=== PATIENT | male | born 2000 | race Hispanic/Latino ===

== ENCOUNTER 2019-08-10 19:36 | Emergency (ER) | payer SELFPAY ==
[2019-08-10] MEDS ORDERED: MEPERIDINE HCL 25 MG/ML SYR ONE (19:49)
[2019-08-10] MEDS ORDERED: KETOROLAC 30 MG/ML INJ ONE (19:49)
[2019-08-10] MEDS ORDERED: dexAMETHasone 4 MG/ML VIAL ONE (19:49)
--- NOTE | 2019-08-10 20:15 | RAD REPORT ---
EXAM DESCRIPTION: RAD - Lumbar Spine 3 Views - 08/10/2019 7:57 pm CLINICAL HISTORY: back pain COMPARISON: No comparisons FINDINGS: A three-view lumbar spine examination was performed. Lumbar bodies are normal in height and alignment. No fracture or acute bony process seen. No disc spa ce narrowing. No other significant findings. No pars defects identified. IMPRESSION: Negative Lumbar Spine examination. Concerns for disc herniation, central canal abnormality or occult bone process can be addressed with follow-up outpatient MR lumbar spine imaging.
--- NOTE | 2019-08-11 00:19 | EDPHYS ---
Physician Documentation [facility] Name: Jules Sierra Age: 18 yrs Sex: Male : 2000 Arrival Date: 08/10/2019 Time: 19:36 Bed 7 Private MD: ED Physician Leonard Robertson HPI: 08/10 19:52 This 18 yrs old Male presents to ER via EMS with complaints of Back Pain. rn 19:52 The patient presents with pain that is acute. The symptoms are located in the low back, rn left low back. Onset: The symptoms/episode began/occurred just prior to arrival. The pain does not radiate. Modifying factors: The patient symptoms are alleviated by remaining still, specific position, lying down, the patient symptoms are aggravated by any movement. Severity of symptoms: At their worst the symptoms were moderate, in the emergency department the symptoms have improved. The patient has not experienced similar symptoms in the past. 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 No previous back injuries. No IV drug use. No other medical problems. Feels better in prone position.. Historical: - Allergies: 19:37 No Known Allergies; sg - Home Meds: 19:37 None [Active]; sg - PMHx: 19:37 None; sg - PSHx: 19:37 None; sg - Immunization history:: Adult Immunizations up to date. - Coronavirus screen:: The patient has NOT traveled to [place] in the past 14 days. The patient has NOT had contact with known/suspected case of Coronavirus?. - Social history:: Smoking status: Patient denies any tobacco usage or history of. - Family history:: not pertinent. - Ebola Screening: : Patient negative for fever greater than or equal to 101.5 degrees Fahrenheit, and additional compatible Ebola Virus Disease symptoms Patient denies exposure to infectious person Patient denies travel to an Ebola-affected area in the 21 days before illness onset No symptoms or risks identified at this time. - Hospitalizations: : No recent hospitalization is reported. ROS: 19:52 Constitutional: Negative for fever, chills, and weight loss, Eyes: Negative for injury, rn pain, redness, and discharge, Neck: Negative for injury, pain, and swelling, Cardiovascular: Negative for chest pain, palpitations, and edema, Respiratory: Negative for shortness of breath, cough, wheezing, and pleuritic chest pain, Abdomen/GI: Negative for abdominal pain, nausea, vomiting, diarrhea, and constipation, Back: + left lower back pain : Negative for injury, bleeding, discharge, and swelling, MS/Extremity: Negative for injury and deformity, Skin: Negative for injury, rash, and discoloration, Neuro: Negative for headache, weakness, numbness, tingling, and seizure. Exam: 19:52 Constitutional: This is a well developed, well nourished patient who is awake, alert, rn laying in prone position Neck: No midline cervical tenderness Cardiovascular: Regular rate and rhythm. No pulse deficits. Respiratory: No increased work of breathing, no retractions or nasal flaring. Back: No spinal tenderness. + left perilumbar tenderness without skin changes or hematoma Skin: Warm, dry MS/ Extremity: Pulses equal, no cyanosis. Neurovascular intact. Sensation and strength intact but limited due to pain. Neuro: Awake and alert, GCS 15, oriented to person, place, time, and situation. Motor strength 5/5 in all extremities. Sensory grossly intact. Vital Signs: 19:39 BP 128 / 70; Pulse 82; Resp 16; Temp 97.9; Pulse Ox 95% on R/A; sg 21:20 BP 122 / 70; Pulse 80; Resp 18; Pulse Ox 98% on R/A; Pain 2/10; sg MDM: 19:39 Patient medically screened. rn 20:59 Differential diagnosis: sprain, radiculopathy, muscle spasm, strain, disc bulge. Data rn reviewed: vital signs, nurses notes, radiologic studies, plain films, and as a result, I will discharge patient. Counseling: I had a detailed discussion with the patient and/or guardian regarding: the historical points, exam findings, and any diagnostic results supporting the discharge/admit diagnosis, radiology results, the need for outpatient follow up, to return to the emergency department if symptoms worsen or persist or if there are any questions or concerns that arise at home. Response to treatment: the patient's symptoms have mildly improved after treatment, and as a result, I will discharge patient. Special discussion: I discussed with the patient/guardian in detail that at this point there is no indication for admission to the hospital. It is understood, however, that if the symptoms persist or worsen the patient needs to return immediately for re-evaluation. ED course: No acute findings on xray lumbar spine, improved symptoms, no signs of spinal cord compression, will dc home with pain meds, steroids, muscle relaxer. . 21:02 Special discussion: Further emergent ED testing is not indicated at this point in time. rn I discussed with the patient/guardian in detail the need to arrange with the PCP or specialist further outpatient testing, MRI. 08/10 19:39 Order name: IV Start; Complete Time: 19:53 rn Administered Medications: 20:15 Drug: Decadron - Dexamethasone 10 mg Route: IVP; Site: right antecubital; jb4 20:16 Drug: TORadol 30 mg Route: IVP; Site: right antecubital; jb4 20:17 Drug: Demerol 25 mg {Note: Rass score 0.} Route: IVP; Site: right antecubital; jb4 Disposition: 08/10/19 21:01 Discharged to Home. Impression: Muscle spasm of back, Strain of muscle, fascia and tendon of lower back. - Condition is Stable. - Discharge Instructions: Back Pain, Adult, Muscle Cramps and Spasms, Muscle Strain. - Prescriptions for Cyclobenzaprine 10 mg Oral Tablet - take 1 tablet by ORAL route every 8 hours As needed; 20 tablet. Tramadol 50 mg Oral Tablet - take 1 tablet by ORAL route every 8 hours as needed; 20 tablet. Medrol (Nik) 4 mg Oral Tablets, Dose Pack - take 1 tablet by ORAL route as directed - follow package instructions; 1 packet. - Medication Reconciliation Form, Thank You Letter, Antibiotic Education, Prescription Opioid Use form. - Follow up: Private Physician; When: As needed; Reason: Recheck today's complaints, Re-evaluation by your physician. - Problem is new. - Symptoms have improved. Signatures: Andrew Villatoro RN RN sg Nieto, Roman, MD MD rn Bryson, James, RN RN jb4 Corrections: (The following items were deleted from the chart) 21:30 21:01 08/10/2019 21:01 Discharged to Home. Impression: Muscle spasm of back; Strain of sg muscle, fascia and tendon of lower back. Condition is Stable. Forms are Medication Reconciliation Form, Thank You Letter, Antibiotic Education, Prescription Opioid Use. Follow up: Private Physician; When: As needed; Reason: Recheck today's complaints, Re-evaluation by your physician. Problem is new. Symptoms have improved. rn
--- NOTE | 2019-08-11 00:22 | ER ---
Nurse's Notes [facility] Name: Jules Sierra Age: 18 yrs Sex: Male : 2000 Arrival Date: 08/10/2019 Time: 19:36 Bed 7 Private MD: Diagnosis: Muscle spasm of back;Strain of muscle, fascia and tendon of lower back Presentation: 08/10 19:37 Presenting complaint: EMS states: pt was reaching over the back of a couch to leaf size picker a sg small child when he had a pain in the lower back that caused him to fall to the ground onto his buttocks, pt reports having to lay on his stomach for a position of comfort, denies LOC, no feeling of popping or sensations described by the pt per EMS. Transition of care: patient was not received from another setting of care. Onset of symptoms was August 10, 2019. Risk Assessment: Do you want to hurt yourself or someone else? Patient reports no desire to harm self or others. Initial Sepsis Screen: Does the patient meet any 2 criteria? No. Patient's initial sepsis screen is negative. Does the patient have a suspected source of infection? No. Patient's initial sepsis screen is negative. Care prior to arrival: IV initiated. 20 GA, in the right antecubital area. 19:37 Method Of Arrival: EMS: [facility] 19:37 Acuity: BASIM 4 Triage Assessment: 19:40 General: Appears uncomfortable, slender, well groomed, well developed, well nourished, sg Behavior is calm, cooperative, appropriate for age. Pain: Complains of pain in lumbar area Quality of pain is described as aching, sharp, stabbing. Neuro: Level of Consciousness is awake, alert, obeys commands, Oriented to person, place, time, situation, Speech is normal. Cardiovascular: Patient's skin is warm and dry. Respiratory: Airway is patent Respiratory effort is even, unlabored, Respiratory pattern is regular, symmetrical. Derm: Skin is pink, warm \T\ dry. Musculoskeletal: Circulation, motion, and sensation intact. Historical: - Allergies: 19:37 No Known Allergies; sg - Home Meds: 19:37 None [Active]; sg - PMHx: 19:37 None; sg - PSHx: 19:37 None; sg - Immunization history:: Adult Immunizations up to date. - Coronavirus screen:: The patient has NOT traveled to [place] in the past 14 days. The patient has NOT had contact with known/suspected case of Coronavirus?. - Social history:: Smoking status: Patient denies any tobacco usage or history of. - Family history:: not pertinent. - Ebola Screening: : Patient negative for fever greater than or equal to 101.5 degrees Fahrenheit, and additional compatible Ebola Virus Disease symptoms Patient denies exposure to infectious person Patient denies travel to an Ebola-affected area in the 21 days before illness onset No symptoms or risks identified at this time. - Hospitalizations: : No recent hospitalization is reported. Assessment: 19:40 General: Appears in no apparent distress. well groomed, well developed, well nourished, sg Behavior is calm, cooperative, appropriate for age. Pain: Complains of pain in lumbar area Quality of pain is described as aching. Neuro: Level of Consciousness is awake, alert, obeys commands, Oriented to person, place, time, Speech is normal, Facial symmetry appears normal. Cardiovascular: Heart tones S1 S2 present Patient's skin is warm and dry. Chest pain is denied. Respiratory: Airway is patent Respiratory effort is even, unlabored, Respiratory pattern is regular, symmetrical. GI: Abdomen is flat, non-distended. : No signs and/or symptoms were reported regarding the genitourinary system. EENT: No signs and/or symptoms were reported regarding the EENT system. Derm: Skin is pink, warm \T\ dry. Musculoskeletal: Circulation, motion, and sensation intact. Range of motion: intact in all extremities, Reports pain in lumbar area. Vital Signs: 19:39 BP 128 / 70; Pulse 82; Resp 16; Temp 97.9; Pulse Ox 95% on R/A; sg 21:20 BP 122 / 70; Pulse 80; Resp 18; Pulse Ox 98% on R/A; Pain 2/10; sg ED Course: 19:36 Patient arrived in ED. sg 19:37 Arm band placed on. sg 19:38 Leonard Robertson MD is Attending Physician. rn 19:39 Triage completed. sg 19:40 Patient has correct armband on for positive identification. Placed in gown. Bed in low sg position. Side rails up X2. Pulse ox on. NIBP on. Warm blanket given. Head of bed elevated. 19:40 Maintain EMS IV. Dressing intact. Site clean \T\ dry. Gauge \T\ site: 20 G RAC. sg 19:42 Andrew Villatoro, RN is Primary Nurse. sg 21:25 No provider procedures requiring assistance completed. IV discontinued, intact, sg bleeding controlled, No redness/swelling at site. Pressure dressing applied. Administered Medications: 20:15 Drug: Decadron - Dexamethasone 10 mg Route: IVP; Site: right antecubital; jb4 20:16 Drug: TORadol 30 mg Route: IVP; Site: right antecubital; jb4 20:17 Drug: Demerol 25 mg {Note: Rass score 0.} Route: IVP; Site: right antecubital; jb4 Outcome: 21:01 Discharge ordered by . rn 21:25 Discharged to home ambulatory, with family. sg 21:25 Condition: improved 21:25 Discharge instructions given to patient, family, Instructed on discharge instructions, follow up and referral plans. no drinking with medication, no driving heavy equipment, medication usage, safety practices, Demonstrated understanding of instructions, follow-up care, medications, Prescriptions given X 3. 21:30 Patient left the ED. sg Signatures: Andrew Villatoro, RN FATUMA Leonard Robertson MD MD rn Bryson, James, RN RN jb4
[2019-08-11 02:47] VITALS: BP 128/70; TEMP 97.9; O2SAT 95
== END 2019-08-10 21:30 | disposition home or self-care (01) ==
LOC: ER 19:36
DX: S39.012A Strain of muscle, fascia and tendon of lower back, initial encounter (principal); M62.830 Muscle spasm of back
CPT/HCPCS: 72100; 96374; 96375; 99284; J2175

== ENCOUNTER 2019-10-14 11:17 | Emergency (ER) | payer SELFPAY ==
--- OUTSIDE RECORDS SUMMARY | 2019-10-14 11:20 | XMS REPORT | Continuity of Care Document ---
:2000 Author Organization [facility] Address [address] [place] [address] Phone Unavailable Care Team Providers Name Role Phone PHYSICIAN Primary Care Physician Unavailable Insurance Providers Guarantor Martin Sierra Address [address] [place] [address] Email DENIED Payer Self Pay Insurance Subscriber's Name Martin Sierra Relationship Self / Same As Patient Group Number NA Group Name NA Advance Directives Directive Response Recorded Date/Time Patient/Family Given Education Material R/T Y - 07/15/18.. .[place] 07/15/18 9:02pm Directives? Chief Complaint and Reason for Visit Chief Complaint Trauma Reason for Visit [id number] Head injury Fall Problems Active ProblemsNo active problem information available. Past Problems Medical Problem Onset Date Status Fall Unknown Acute Head injury Unknown Acute Nasal bone fractures Unknown Acute Medications Current Home Medications Medication Dose Units Route Directions Days Qty Instructio ns Start Date Ondansetron Hcl 4 Mg ORAL Every 6 Hours 30 Days 15 Tablet 07/15/18 (Zofran *) 4 Mg As Needed as Tab needed for Nausea/Vomitin g Social History Smoking Status Start Date Stop Date Never smoker Hospital Discharge Instructions No hospital discharge instruction information available. Plan of Care Discharge Date 07/15/18 9:00pm Instructions/Education Provided Head Injury, Adult, Ea sy-to-Read Nasal Fracture Forms Provided Portal Welcome Letter Prescriptions See Medication Section Referrals NO PHYSICIAN Additional Instructions/Education Tylenol and ibuprofe n as needed for pain Zofran 4 mg every 6 hours as needed for nausea number [address] Encarnacion (ENT) t his week Head injury precautions for next 24 hours return for new or worsening of symptoms Functional Status No functional status information available. Allergies, Adverse Reactions, Alerts No allergy information available. Immunizations No immunization information available. Vital Signs Acute Vital Signs Vital Response Date/Time Blood Pressure 128/85 mm Hg 07/15/2018 9:01pm Pulse Pulse Rate (adult) 68 beats per minute (60 - 100) 019 9:01pm Respiratory Rate 18 breaths per minute (10 - 24) 07/15/19 19 9:01pm Temperature Source Oral 07/15/2018 9:01pm Height 5 ft 9 in 07/15/2018 7:31pm Weight 180 lb 07/15/2018 7:31pm Body Mass Index 26.6 kg/m^2 07/15/2018 7:31pm Results No relevant diagnostic test, laboratory data and/or discharge summary information available. Procedures Procedure Status Date Provider(s) Computed tomography of head without Completed 07/15/18 REN LI contrast Computed tomography of facial bones and Completed 07/15/18 REN LI paranasal sinuses without contrast Encounters Encounter Location Arrival/Admit Date Discharge/Depart Date Attending Provider Departed [place] 07/15/18 7:22pm 07/15/18 9:00pm [facility] Recent Diagnosis
[2019-10-14 12:33] LABS: Absolute Lymphocytes (CBC) 2.5 K/uL (0.7-4.9); Basophils % 0.8 % (0-1.3); Hematocrit 42.7 % (39.6-49.0); Lymphocytes % 26.4 % (15.3-44.8); MPV 8.4 fL (7.6-11.3); RBC Red Blood Cell Count 4.86 M/uL (4.33-5.43)
[2019-10-14 12:51] LABS: ALT/SGPT 21 U/L (12-78); AST/SGOT 14 U/L (15-37); Albumin 4.5 g/dL (3.4-5.0); Alkaline Phosphatase 87 U/L (45-117); BUN Blood Urea Nitrogen 7 mg/dL (7-18); Bicarbonate 28 mmol/L (21-32); Bilirubin Direct 0.2 mg/dL (0-0.2); Bilirubin Total 0.6 mg/dL (0.2-1.0); Glucose Level 94 mg/dL (74-106); Potassium 4.1 mmol/L (3.5-5.1); Protein, Total 8.3 g/dL (6.4-8.2); Sodium Level 141 mmol/L (136-145)
[2019-10-14 13:00] LABS: Barbiturates NEGATIVE (NEGATIVE); Benzodiazepines POSITIVE (NEGATIVE); Cocaine POSITIVE (NEGATIVE); METHAMPHETAM NEGATIVE (NEGATIVE); Methadone NEGATIVE (NEGATIVE); Opiates NEGATIVE (NEGATIVE); Phencyclidine NEGATIVE (NEGATIVE); THC Cannibis POSITIVE (NEGATIVE)
[2019-10-14 13:24] LABS: Urine Blood TRACE (NEG); Urine Glucose NEGATIVE (NEG); Urine Protein NEGATIVE (NEG); Urine Specific Gravity >1.030 (1.005-1.030); Urine pH 5.5 (5.0-7.0)
--- NOTE | 2019-10-14 14:30 | ER ---
Nurse's Notes [facility] Name: Jules Sierra Age: 18 yrs Sex: Male : 2000 Arrival Date: 10/14/2019 Time: 11:18 Bed 17 Private MD: Diagnosis: Major depressive disorder, recurrent;Suicidal ideations;Suicide attempt;Cocaine abuse;Abuse of non-psychoactive substances-pot, benzos, cocaine;Abrasion of left forearm Presentation: 10/13 11:15 Chief complaint: Patient states: that he caught his girlfriend talking to another man. ah He was actively cutting his left forearm with a kitchen knife when the labor operator arrived. He states that he feels lost, depressed, and hopeless x2 months and today exacerbated those feelings. He does have a prior attempt when in high school. Coronavirus screen: Proceed with normal triage. Patient denies a cough. Patient denies shortness of breath or difficulty breathing. Patient denies measured and/or subjective temperature greater than 100.4F prior to today's visit. Patient denies travel on a cruise ship or to a country the [facility] currently lists as an affected area. Patient denies contact with known and/or suspected case of COVID-19. Ebola Screen: No symptoms or risks identified at this time. Initial Sepsis Screen: Does the patient meet any 2 criteria? No. Patient's initial sepsis screen is negative. Does the patient have a suspected source of infection? No. Patient's initial sepsis screen is negative. Risk Assessment: Do you want to hurt yourself or someone else? Patient reports desire/thoughts of hurting themselves or someone else. Provider notified. Onset of symptoms was October 14, 2019. 11:15 Method Of Arrival: Law Enforcement: [place] 11:15 Acuity: BASIM 2 ah 11:37 Acuity: BASIM 2 hb Historical: - Allergies: 11:40 No Known Allergies; - Home Meds: 11:40 None [Active]; - PMHx: 11:40 None; - PSHx: 11:40 None; - Immunization history:: Adult Immunizations up to date. - Social history:: Smoking status: Patient reports the use of cigarette tobacco products, denies chronic smoking, but will smoke occasionally, Patient uses alcohol, occasionally. Patient/guardian denies using street drugs. - Family history:: not pertinent. Screenin:52 Abuse screen: Denies threats or abuse. Nutritional screening: No deficits noted. Tuberculosis screening: No symptoms or risk factors identified. Fall Risk None identified. Assessment: 11:15 General: Appears comfortable, Behavior is cooperative, appropriate for age, quiet, sad. Pain: Denies pain. Neuro: Level of Consciousness is awake, alert, Oriented to person, place, time, situation. Cardiovascular: Heart tones S1 S2 present Capillary refill < 3 seconds Patient's skin is warm and dry. Respiratory: Airway is patent Respiratory effort is even, unlabored, Respiratory pattern is regular, symmetrical, Breath sounds are clear bilaterally. GI: Bowel sounds present X 4 quads. : No signs and/or symptoms were reported regarding the genitourinary system. EENT: No signs and/or symptoms were reported regarding the EENT system. Derm: No signs and/or symptoms reported regarding the dermatologic system. Musculoskeletal: No signs and/or symptoms reported regarding the musculoskeletal system. 12:15 Reassessment: Pt lying in bed resting at this time. No needs voiced at this time. 12:30 Reassessment: Pt sitting up in bed eating lunch at this time. 13:15 Reassessment: No needs voiced at this time. Pt resting with eyes closed and resp even ah and unlabored. 15:23 Reassessment: Pt states that he does not want to harm himself at this time. He states ah that he just wants to go home and sleep. Pt given a list of community resources to assist him. Instructed Pt to establish and follow up with psychiatry MD VIRK. Pt voiced understanding. Pt states that he wants to get help and he wants to feel better. Vital Signs: 11:15 BP 133 / 90; Pulse 89; Resp 16; Temp 98.6(A); Pulse Ox 100% ; Weight 79.38 kg; Height 5 ft. 9 in. (175.26 cm); 11:15 Body Mass Index 25.84 (79.38 kg, 175.26 cm) ED Course: 11:18 Patient arrived in ED. am2 11:18 Warren Pardo MD is Attending Physician. [facility] 11:18 Sitter at bedside. hb 11:30 Little Vale, RN is Primary Nurse. 11:38 Triage completed. 11:50 Patient has correct armband on for positive identification. Placed in gown. Call light mh5 in reach. Side rails up X 1. Warm blanket given. Pillow given. 12:30 Inserted saline lock: 20 gauge in right antecubital area, using aseptic technique. jp3 Blood collected. 12:30 Initial lab(s) drawn, by ma, sent to lab. Urine collected: clean catch specimen, clear, jp3 dayday colored, EKG done, Legal drug screen obtained per protocol. 14:30 Randall Figueroa MD is Referral Physician. [facility] 15:23 No provider procedures requiring assistance completed. IV discontinued, intact, bleeding controlled, No redness/swelling at site. Pressure dressing applied. Administered Medications: No medications were administered Outcome: 14:30 Discharge ordered by . [facility] 15:27 Discharged to home ambulatory. 15:27 Condition: stable 15:27 Discharge instructions given to patient, Instructed on discharge instructions, follow up and referral plans. Demonstrated understanding of instructions, follow-up care. 15:35 Patient left the ED. Signatures: Warren Pardo MD MD cha Baxter, Heather, RN RN Antonette Lin mh5 Ella Weathers am2 Ned Alonzo jp3 Little Vale, RN RN
--- NOTE | 2019-10-14 14:31 | EDPHYS ---
Physician Documentation [facility] Name: Jules Sierra Age: 18 yrs Sex: Male : 2000 Arrival Date: 10/14/2019 Time: 11:18 Bed 17 Private MD: ED Physician Warren Pardo HPI: 10/13 12:03 This 18 yrs old Male presents to ER via [employer] with complaints of ancelmo suicidal thoughtsand superficial arm cuts. 12:03 The patient presents to the emergency department with depression. Onset: The ancelmo symptoms/episode began/occurred 1 day(s) ago. Past psychiatric history: Prior diagnosis: depression. drugs, lost job, girlfriend cheating. Associated signs and symptoms: Pertinent positives; depression, substance abuse. Severity of symptoms: At their worst the symptoms were mild in the emergency department the symptoms are unchanged. Severity of symptoms: At their worst the symptoms were. The patient has not experienced similar symptoms in the past. Historical: - Allergies: 11:40 No Known Allergies; ah - Home Meds: 11:40 None [Active]; ah - PMHx: 11:40 None; ah - PSHx: 11:40 None; - Immunization history:: Adult Immunizations up to date. - Social history:: Smoking status: Patient reports the use of cigarette tobacco products, denies chronic smoking, but will smoke occasionally, Patient uses alcohol, occasionally. Patient/guardian denies using street drugs. - Family history:: not pertinent. ROS: 12:03 Constitutional: Negative for fever, chills, and weight loss, Eyes: Negative for injury, ancelmo pain, redness, and discharge, ENT: Negative for injury, pain, and discharge, Neck: Negative for injury, pain, and swelling, Cardiovascular: Negative for chest pain, palpitations, and edema, Respiratory: Negative for shortness of breath, cough, wheezing, and pleuritic chest pain, Abdomen/GI: Negative for abdominal pain, nausea, vomiting, diarrhea, and constipation, Back: Negative for injury and pain, : Negative for injury, bleeding, discharge, and swelling, MS/Extremity: Negative for injury and deformity, Neuro: Negative for headache, weakness, numbness, tingling, and seizure, Allergy/Immunology: Negative for hives, rash, and allergies, Endocrine: Negative for neck swelling, polydipsia, polyuria, polyphagia, and marked weight changes. 12:03 Skin: Positive for abrasion(s). 12:03 Psych: Positive for depression, suicide gesture. Exam: 12:03 Constitutional: This is a well developed, well nourished patient who is awake, alert, ancelmo and in no acute distress. Head/Face: Normocephalic, atraumatic. Eyes: Pupils equal round and reactive to light, extra-ocular motions intact. Lids and lashes normal. Conjunctiva and sclera are non-icteric and not injected. Cornea within normal limits. Periorbital areas with no swelling, redness, or edema. ENT: Nares patent. No nasal discharge, no septal abnormalities noted. Tympanic membranes are normal and external auditory canals are clear. Oropharynx with no redness, swelling, or masses, exudates, or evidence of obstruction, uvula midline. Mucous membranes moist. Neck: Trachea midline, no thyromegaly or masses palpated, and no cervical lymphadenopathy. Supple, full range of motion without nuchal rigidity, or vertebral point tenderness. No Meningismus. Chest/axilla: Normal chest wall appearance and motion. Nontender with no deformity. No lesions are appreciated. Cardiovascular: Regular rate and rhythm with a normal S1 and S2. No gallops, murmurs, or rubs. Normal PMI, no JVD. No pulse deficits. Respiratory: Lungs have equal breath sounds bilaterally, clear to auscultation and percussion. No rales, rhonchi or wheezes noted. No increased work of breathing, no retractions or nasal flaring. Abdomen/GI: Soft, non-tender, with normal bowel sounds. No distension or tympany. No guarding or rebound. No evidence of tenderness throughout. Back: No spinal tenderness. No costovertebral tenderness. Full range of motion. Male : Normal genitalia with no discharge or lesions. MS/ Extremity: Pulses equal, no cyanosis. Neurovascular intact. Full, normal range of motion. Neuro: Awake and alert, GCS 15, oriented to person, place, time, and situation. Cranial nerves II-XII grossly intact. Motor strength 5/5 in all extremities. Sensory grossly intact. Cerebellar exam normal. Normal gait. 12:03 Skin: injury, abrasion(s), very small abrasion noted. 12:03 Psych: Behavior/mood is pleasant, cooperative, Affect is calm, Oriented to person, place, time, Patient has no thoughts/intents to harm self or others. Judgement / Insight is normal. Delusions/hallucinations are not present. 12:50 ECG was reviewed by the Attending Physician. ancelmo Vital Signs: 11:15 BP 133 / 90; Pulse 89; Resp 16; Temp 98.6(A); Pulse Ox 100% ; Weight 79.38 kg; Height 5 ah ft. 9 in. (175.26 cm); 11:15 Body Mass Index 25.84 (79.38 kg, 175.26 cm) MDM: 11:18 Patient medically screened. ancelmo 12:09 Differential diagnosis: depression. Data reviewed: vital signs, nurses notes, lab test ancelmo result(s). Data interpreted: equipment monitor phototypesetting: rate is 89 beats/min, Pulse oximetry: is not applicable for this patient encounter. Test interpretation: by ED physician or midlevel provider: ECG. Counseling: I had a detailed discussion with the patient and/or guardian regarding: the historical points, exam findings, and any diagnostic results supporting the discharge/admit diagnosis, lab results. ED course: suicidal thoughts, used cocaine last night, wants help, family in [place]. 12:55 ED course: pt stable awaiting psych team to visit via tele med. ancelmo 14:31 ED course: pt will follow up , not a danger to himself, will refrain from drug use, ancelmo return if worse. 10/13 12:03 Order name: Salicylate; Complete Time: 13:30 ancelmo 10/13 12:03 Order name: Acetaminophen; Complete Time: 12:54 ancelmo 10/13 12:03 Order name: Basic Metabolic Panel; Complete Time: 12:54 ancelmo 10/13 12:03 Order name: CBC with Diff; Complete Time: 12:54 ancelmo 10/13 12:03 Order name: ETOH Level; Complete Time: 12:54 ancelmo 10/13 12:03 Order name: Hepatic Function; Complete Time: 12:54 ancelmo 10/13 11:51 Order name: Diet Finger Food; Complete Time: 11:51 [facility] 10/13 12:03 Order name: Urine Drug Screen; Complete Time: 13:30 ancelmo 10/13 12:03 Order name: EKG; Complete Time: 12:03 ancelmo 10/13 12:03 Order name: EKG - Nurse/Tech; Complete Time: 12:52 [facility] 10/13 12:03 Order name: IV Saline Lock; Complete Time: 12:52 [facility] 10/13 12:03 Order name: Labs collected and sent; Complete Time: 12:53 [facility] 10/13 12:03 Order name: Urine Dipstick-Ancillary (obtain specimen); Complete Time: 12:41 [facility] 10/13 12:42 Order name: Urine Dipstick--Ancillary (enter results); Complete Time: 13:30 em1 EC:50 Rate is 75 beats/min. Rhythm is regular. QRS [place] is Normal. [place] interval is normal. QRS ancelmo interval is normal. QT interval is normal. No Q waves. T waves are Normal. No ST changes noted. Clinical impression: NSR w/ Non-specific ST/T Changes. Interpreted by me. Reviewed by me. Administered Medications: No medications were administered Disposition: 10/14/19 14:30 Discharged to Home. Impression: Major depressive disorder, recurrent, Suicidal ideations, Suicide attempt, Cocaine abuse, Abuse of non-psychoactive substances - pot, benzos, cocaine, Abrasion of left forearm. - Condition is Stable. - Discharge Instructions: Substance Use Disorder, Suicidal Feelings: How to Help Yourself, Helping Someone Who is Suicidal, Stress and Stress Management, Major Depressive Disorder, [id number], Major Depressive Disorder. - Medication Reconciliation Form, Thank You Letter, Antibiotic Education, Prescription Opioid Use form. - Follow up: Private Physician; When: 2 - 3 days; Reason: Recheck today's complaints, Continuance of care, Re-evaluation by your physician. Follow up: Randall Figueroa MD; When: 2 - 3 days; Reason: Recheck today's complaints, Continuance of care, Re-evaluation by your physician. - Problem is new. - Symptoms have improved. Signatures: Dispatcher [employer] EDWarren Taylor MD MD cha Harris, Amy RN RN Corrections: (The following items were deleted from the chart) 14:30 14:30 10/14/2019 14:30 Discharged to Home. Impression: Major depressive disorder, ancelmo recurrent; Suicidal ideations; Suicide attempt; Cocaine abuse; Abuse of non-psychoactive substances - pot, benzos, cocaine; Abrasion of left forearm. Condition is Stable. Discharge Instructions: Suicidal Feelings: How to Help Yourself, Helping Someone Who is Suicidal, Stress and Stress Management, Major Depressive Disorder, [id number], Major Depressive Disorder, Substance Use Disorder. Forms are Medication Reconciliation Form, Thank You Letter, Antibiotic Education, Prescription Opioid Use. Follow up: Private Physician; When: 2 - 3 days; Reason: Recheck today's complaints, Continuance of care, Re-evaluation by your physician. Problem is new. Symptoms have improved. [facility] 15:35 14:30 10/14/2019 14:30 Discharged to Home. Impression: Major depressive disorder, ah recurrent; Suicidal ideations; Suicide attempt; Cocaine abuse; Abuse of non-psychoactive substances - pot, benzos, cocaine; Abrasion of left forearm. Condition is Stable. Discharge Instructions: Suicidal Feelings: How to Help Yourself, Helping Someone Who is Suicidal, Stress and Stress Management, Major Depressive Disorder, [id number], Major Depressive Disorder, Substance Use Disorder. Forms are Medication Reconciliation Form, Thank You Letter, Antibiotic Education, Prescription Opioid Use. Follow up: Private Physician; When: 2 - 3 days; Reason: Recheck today's complaints, Continuance of care, Re-evaluation by your physician. Follow up: Randall Figueroa; When: 2 - 3 days; Reason: Recheck today's complaints, Continuance of care, Re-evaluation by your physician. Problem is new. Symptoms have improved. ancelmo
--- NOTE | 2019-10-14 14:41 | EKG ---
Test Date: 2019-10-14 Test Time: 12:27:17 Roll Panner: TORRES MEASUREMENT RESULTS: Intervals: Rate: 75 IL: 146 QRSD: 104 QT: 372 QTc: 415 [place]: P: 65 IL: 146 QRS: 59 T: 60 INTERPRETIVE STATEMENTS: Normal sinus rhythm Incomplete right bundle branch block Borderline ECG No previous ECG available for comparison Electronically Signed On 10-14-19 14:40:56 CDT by Dimitris Saha
== END 2019-10-14 15:35 | disposition home or self-care (01) ==
LOC: ER 11:17
DX: T14.91XA Suicide attempt, initial encounter (principal); S50.812A Abrasion of left forearm, initial encounter; F14.10 Cocaine abuse, uncomplicated; F13.10 Sedative, hypnotic or anxiolytic abuse, uncomplicated; F12.10 Cannabis abuse, uncomplicated; X78.9XXA Intentional self-harm by unspecified sharp object, initial encounter; Y93.89 Activity, other specified; Y92.9 Unspecified place or not applicable; F17.210 Nicotine dependence, cigarettes, uncomplicated
CPT/HCPCS: 36415; 80048; 80076; 80307; 80320; 80329; 81003; 85025; 93005; 99284

== ENCOUNTER 2020-02-23 16:33 | Emergency (ER) | payer SELFPAY ==
--- NOTE | 2020-02-23 17:04 | ER ---
Nurse's Notes [facility] Name: Jules Sierra Age: 19 yrs Sex: Male : 2000 Arrival Date: 02/23/2020 Time: 16:34 Bed 17 Private MD: Diagnosis: Anxiety disorder, unspecified Presentation: 02/22 16:34 Chief complaint: Patient states: pt presents with EMS with reports of erratic behavior jr10 at home, reports that pt got angry and was breaking things in the apt; hx of depression, denies HI/SI. Coronavirus screen: Client denies travel out of the [place] in the last 14 days. At this time, the client does not indicate any symptoms associated with coronavirus-19. Ebola Screen: No symptoms or risks identified at this time. Initial Sepsis Screen: Does the patient meet any 2 criteria? No. Patient's initial sepsis screen is negative. Does the patient have a suspected source of infection? No. Patient's initial sepsis screen is negative. Risk Assessment: Do you want to hurt yourself or someone else? Patient reports no desire to harm self or others. Onset of symptoms was February 23, 2020. 16:34 Method Of Arrival: EMS jr10 16:34 Acuity: BASIM 3 jr10 Triage Assessment: 17:17 General: Appears in no apparent distress. Behavior is calm, cooperative, appropriate jr10 for age. Pain: Denies pain. Neuro: No deficits noted. Respiratory: No deficits noted. Derm: Skin superficial abrasions noted to left forearm. Musculoskeletal: No deficits noted. No signs and/or symptoms reported regarding the musculoskeletal system. Historical: - Allergies: 16:38 No Known Allergies; jr10 - PMHx: 16:38 ADHD; Depression; jr10 - PSHx: 16:38 None; jr10 - Immunization history:: Adult Immunizations up to date. - Social history:: Smoking status: unknown. Screenin:37 Abuse screen: Denies threats or abuse. Denies injuries from another. Nutritional jr10 screening: No deficits noted. Tuberculosis screening: No symptoms or risk factors identified. Fall Risk None identified. Assessment: 17:18 Reassessment: SEE TRIAGE ASSESSMENT. jr10 Vital Signs: 16:34 BP 153 / 93; Pulse 105; Resp 18; Temp 98.6; Pulse Ox 99% on R/A; Weight 79.38 kg; jr10 Height 5 ft. 9 in. (175.26 cm); Pain 0/10; 17:22 BP 126 / 83; Pulse 102; Resp 17; Pulse Ox 100% on R/A; jr10 16:34 Body Mass Index 25.84 (79.38 kg, 175.26 cm) jr10 ED Course: 16:34 Patient arrived in ED. jr10 16:37 Triage completed. jr10 16:37 Arm band placed on. jr10 16:37 Patient has correct armband on for positive identification. Bed in low position. Call jr10 light in reach. Side rails up X2. Pulse ox on. NIBP on. 16:37 No provider procedures requiring assistance completed. [facility] 16:46 Domo Merritt PA is PHCP. [facility] 16:46 Leonard Robertson MD is Attending Physician. [facility] 17:23 Patient did not have IV access during this emergency room visit. jr10 Administered Medications: No medications were administered Outcome: 17:03 Discharge ordered by MD. [facility] 17:23 Discharged to home ambulatory. jr10 17:23 Condition: good 17:23 Discharge instructions given to patient, Instructed on discharge instructions, follow up and referral plans. Demonstrated understanding of instructions, follow-up care, medications, Prescriptions given X 1. 17:23 Patient left the ED. jr10 Signatures: Domo Merritt PA PA jmm Rivera, Jessica, RN RN jr10
--- NOTE | 2020-02-23 17:04 | EDPHYS ---
Physician Documentation [facility] Name: Jules Sierra Age: 19 yrs Sex: Male : 2000 Arrival Date: 02/23/2020 Time: 16:34 Bed 17 Private MD: ED Physician Leonard Robertson HPI: 02/22 16:56 This 19 yrs old Male presents to ER via EMS with complaints of Depression. jmm 16:56 The patient presents to the emergency department with anxiety, depression. Onset: The jmm symptoms/episode began/occurred chronic. Past psychiatric history: Prior diagnosis: depression, Psychiatric medications include: none. This is a 19 year old male with a history of anxiety that presents to the ED with complaints of anger issues which he believes stems from anxiety and lack of sleep. Patient admits to racing thoughts mainly in the evenings. Patient states he has had ongoing depression since he was 8. Patient denies any current treatment but does want to begin treatment. Patient currently denies HI or SI. Superficial lacerations noted to the left forearm. Patient states this is due to anger and frustration and states he has no intent to kill himself or harm others. Patient states he has 3 children. . Historical: - Allergies: 16:38 No Known Allergies; jr10 - PMHx: 16:38 ADHD; Depression; jr10 - PSHx: 16:38 None; jr10 - Immunization history:: Adult Immunizations up to date. - Social history:: Smoking status: unknown. ROS: 16:56 Constitutional: Negative for fever, chills, and weight loss, Cardiovascular: Negative jmm for chest pain, palpitations, and edema, Respiratory: Negative for shortness of breath, cough, wheezing, and pleuritic chest pain. 16:56 Skin: Positive for laceration(s). 16:56 Psych: Positive for anxiety, depression. 16:56 All other systems are negative. Exam: 16:56 Constitutional: This is a well developed, well nourished patient who is awake, alert, jmm and in no acute distress. Head/Face: atraumatic. Eyes: EOMI, no conjunctival erythema appreciated ENT: Moist Mucus Membranes Neck: Trachea midline, Supple Chest/axilla: Normal chest wall appearance and motion. Cardiovascular: Regular rate and rhythm. No edema appreciated Respiratory: Normal respirations, no respiratory distress appreciated Abdomen/GI: Non distended, soft Back: Normal ROM 16:56 Skin: multiple superficial lacerations noted to the left forearm which appear new and old. no active bleeding. 16:56 Psych: Behavior/mood is pleasant, cooperative, Affect is calm, Oriented to person, place, time, Patient has no thoughts/intents to harm self or others. Judgement / Insight is normal. Delusions/hallucinations are not present. Vital Signs: 16:34 BP 153 / 93; Pulse 105; Resp 18; Temp 98.6; Pulse Ox 99% on R/A; Weight 79.38 kg; jr10 Height 5 ft. 9 in. (175.26 cm); Pain 0/10; 17:22 BP 126 / 83; Pulse 102; Resp 17; Pulse Ox 100% on R/A; jr10 16:34 Body Mass Index 25.84 (79.38 kg, 175.26 cm) jr10 MDM: 16:56 Patient medically screened. [facility] 17:02 Data reviewed: vital signs, nurses notes. Counseling: I had a detailed discussion with ambrose the patient and/or guardian regarding: the historical points, exam findings, and any diagnostic results supporting the discharge/admit diagnosis, the need for outpatient follow up, to return to the emergency department if symptoms worsen or persist or if there are any questions or concerns that arise at home. 17:20 ED course: Patient is alert and non toxic in appearance in the ED. Patient states he jmm feels calm. I do not suspect he is in acute danger of self harm. Patient does not have HI or hallucinations. Patient states he does want to begin treatment for depression and anxiety. I have given the patient information for outpatient psychiatric follow up. Patient understood and appears to be able to make rational diecisions. Patient was otherwise given strict return precautions. Patient understood and agrees with the plan of care. . Administered Medications: No medications were administered Disposition: 18:30 Co-signature as Attending Physician, Leonard Robertson MD. rn Disposition: 02/23/20 17:03 Discharged to Home. Impression: Anxiety disorder, unspecified. - Condition is Stable. - Discharge Instructions: Panic Attacks. - Prescriptions for Hydroxyzine HCl 25 mg Oral Tablet - take 1 tablet by ORAL route every 6 hours As needed; 30 tablet. - Medication Reconciliation Form, Thank You Letter, Antibiotic Education, Prescription Opioid Use form. - Follow up: Private Physician; When: 2 - 3 days; Reason: Recheck today's complaints, Continuance of care, Re-evaluation by your physician. Signatures: Domo Merritt PA PA jmm Nieto, Roman, MD MD rn Rivera, Jessica, RN RN jr10 Corrections: (The following items were deleted from the chart) 17:23 17:03 02/23/2020 17:03 Discharged to Home. Impression: Anxiety disorder, unspecified. jr10 Condition is Stable. Forms are Medication Reconciliation Form, Thank You Letter, Antibiotic Education, Prescription Opioid Use. Follow up: Private Physician; When: 2 - 3 days; Reason: Recheck today's complaints, Continuance of care, Re-evaluation by your physician. ambrose
[2020-02-23 17:52] VITALS: TEMP 98.6
[2020-02-23 17:53] VITALS: BP 126/83; O2SAT 100
== END 2020-02-23 17:23 | disposition home or self-care (01) ==
LOC: ER 16:33
DX: F41.9 Anxiety disorder, unspecified (principal); F32.9 Major depressive disorder, single episode, unspecified; S51.812A Laceration without foreign body of left forearm, initial encounter; X83.8XXA Intentional self-harm by other specified means, initial encounter
CPT/HCPCS: 99283

== ENCOUNTER 2020-04-20 22:47 | Emergency (ER) | payer SELFPAY ==
--- NOTE | 2020-04-20 23:03 | ER ---
Nurse's Notes [facility] Name: Jules Sierra Age: 19 yrs Sex: Male : 2000 Arrival Date: 04/20/2020 Time: 22:53 Bed External Waiting Private MD: Diagnosis: ED Course: 04/20 22:53 Patient arrived in ED. ag3 Administered Medications: No medications were administered Outcome: 23:02 Eloped from waiting room, Time discovered patient gone: April 20, 2020 at 23:02 sg 23:02 Condition: stable 23:03 Patient left the ED. sg Signatures: Andrew Villatoro RN RN Arlin Elaine ag3
== END 2020-04-20 23:03 | disposition left against medical advice (07) ==
LOC: ER 22:47
DX: Z02.9 Encounter for administrative examinations, unspecified (principal)

== ENCOUNTER 2020-05-21 09:51 | Emergency (ER) | payer SELFPAY ==
[2020-05-21] MEDS ORDERED: ACETAMINOPHEN 500 MG TAB ONE (10:25)
[2020-05-21] MEDS ORDERED: NA CHLORIDE 0.9% 1,000 ML ONE (10:25)
[2020-05-21 10:38] LABS: Basophils % 0.3 % (0-1.3); Lymphocytes % 11.4 % (15.3-44.8); MPV 9.2 fL (7.6-11.3); RBC Red Blood Cell Count 4.96 M/uL (4.33-5.43)
[2020-05-21 10:52] LABS: BUN Blood Urea Nitrogen 14 mg/dL (7-18); Bicarbonate 25 mmol/L (21-32); Glucose Level 89 mg/dL (74-106); Magnesium 1.9 mg/dL (1.8-2.4); Potassium 3.6 mmol/L (3.5-5.1); Sodium Level 141 mmol/L (136-145); Troponin (Emerg Dept Use Only) < 0.02 ng/mL (0.0-0.045)
--- NOTE | 2020-05-21 11:19 | ER ---
Nurse's Notes [facility] Name: Jules Sierra Age: 19 yrs Sex: Male : 2000 Arrival Date: 05/21/2020 Time: 09:53 Bed 14 Private MD: Diagnosis: Acute upper respiratory infection, unspecified;Diarrhea, unspecified Presentation: 05/21 09:54 Chief complaint: EMS states: Pt complains of chest pain, diarrhea. He says he was ec1 exposed to covid a week ago. He has panic disorder. He was freaking out in his house and as soon as we got him in the back of the truck his heart rate dropped and he called down. Coronavirus screen: Client denies travel out of the [place] in the last 14 days. Client presents with at least one sign or symptom that may indicate coronavirus-19. Standard/surgical mask placed on the client. Provider contacted for isolation considerations. Ebola Screen: Patient negative for fever greater than or equal to 101.5 degrees Fahrenheit, and additional compatible Ebola Virus Disease symptoms Patient denies exposure to infectious person. Patient denies travel to an Ebola-affected area in the 21 days before illness onset. Initial Sepsis Screen: Does the patient meet any 2 criteria? HR > 90 bpm. No. Patient's initial sepsis screen is negative. Does the patient have a suspected source of infection? No. Patient's initial sepsis screen is negative. Risk Assessment: Do you want to hurt yourself or someone else? Patient reports no desire to harm self or others. Onset of symptoms was May 18, 2020. 09:54 Method Of Arrival: EMS: [facility] ec1 09:54 Acuity: BASIM 4 ec1 10:03 Acuity: BASIM 3 ec1 Triage Assessment: 09:57 General: Appears in no apparent distress. comfortable, Behavior is calm, cooperative. ec1 Pain: Denies pain. Historical: - Allergies: 09:57 No Known Allergies; ec1 - Home Meds: 09:57 None [Active]; ec1 - PMHx: 09:57 adhd; Depression; Panic Attacks; ec1 - PSHx: 09:57 None; ec1 - Immunization history:: Adult Immunizations up to date. - Social history:: Smoking status: Patient denies any tobacco usage or history of. Screenin:26 Fall Risk None identified. No fall in past 12 months (0 pts). Secondary diagnosis (15 ec1 points) IV access (20 points). Ambulatory Aid- None/Bed Rest/Nurse Assist (0 pts). Gait- Normal/Bed Rest/Wheelchair (0 pts) Mental Status- Oriented to own ability (0 pts). 10:26 Abuse screen: Denies threats or abuse. Denies injuries from another. Nutritional ec1 screening: No deficits noted. Tuberculosis screening: No symptoms or risk factors identified. Assessment: 10:32 General: Appears in no apparent distress. comfortable, Behavior is calm, cooperative. ec1 Neuro: Level of Consciousness is awake, alert, obeys commands. Cardiovascular: Patient's skin is warm and dry. Rhythm is sinus rhythm. Respiratory: Airway is patent Respiratory effort is even, unlabored, Respiratory pattern is regular, Sputum is reports white sputum. GI: Abdomen is flat, Bowel sounds present X 4 quads. Abd is soft and non tender X 4 quads. Reports diarrhea, nausea. : No deficits noted. EENT: No deficits noted. Derm: No deficits noted. Musculoskeletal: No deficits noted. 11:13 Reassessment: Patient appears in no apparent distress at this time. No changes from ec1 previously documented assessment. Patient and/or family updated on plan of care and expected duration. Pain level reassessed. Vital Signs: 09:54 BP 128 / 87; Pulse 115; Resp 16 S; Temp 100.3(O); Pulse Ox 96% on R/A; Weight 81.65 kg ec1 (R); Height 5 ft. 9 in. (175.26 cm) (R); Pain 0/10; 10:45 BP 136 / 81; Pulse 83; Resp 18 S; Pulse Ox 10% ; ec1 11:28 Temp 99.9(O); ec1 09:54 Body Mass Index 26.58 (81.65 kg, 175.26 cm) ec1 ED Course: 09:53 Patient arrived in ED. ec1 09:57 Triage completed. ec1 09:57 Kunal Krueger NP is PHCP. pm1 09:57 Leonard Robertson MD is Attending Physician. pm1 10:09 Leda Martinez RN is Primary Nurse. ec1 10:25 Maintain EMS IV. Dressing intact. Good blood return noted. Site clean \T\ dry. Gauge \T\ ec 1 site: 20 g to left AC . 10:25 EKG done, by ED staff, reviewed by Kunal Krueger NP. 3 10:26 Patient has correct armband on for positive identification. Bed in low position. ec1 10:26 Arm band placed on right wrist. ec1 10:38 XRAY Chest (1 view) In Process Unspecified. EDMS 11:38 No provider procedures requiring assistance completed. IV discontinued, intact, ec1 bleeding controlled, No redness/swelling at site. Pressure dressing applied. Administered Medications: 10:24 Drug: NS 0.9% 1000 ml Route: IV; Rate: 1000 ml; Site: left antecubital; ec1 11:13 Follow up: IV Status: Completed infusion; IV Intake: 1000ml ec1 10:31 Drug: Tylenol 1000 mg Route: PO; ec1 11:27 Follow up: Response: Temperature is decreased ec1 11:28 Drug: Tussionex Pennkinetic ER 5 ml Route: PO; ec1 11:37 Follow up: Response: No adverse reaction ec1 Intake: 11:13 IV: 1000ml; Total: 1000ml. ec1 Outcome: 11:18 Discharge ordered by MD. pm1 11:38 Discharged to home ambulatory. ec1 11:38 Condition: good 11:38 Discharge instructions given to patient, Instructed on discharge instructions, follow up and referral plans. Demonstrated understanding of instructions, follow-up care, medications, Prescriptions given X 1. 11:38 Patient left the ED. ec1 Addendum: 05/23/2020 17:48 Addendum: COVID-19 Result: Negative result given to RN to notify pt. Notified pt of a a5 negative COVID 19 swab results. Pt advised that even with a negative test result they should remain in isolation until symptom free for 3 days without medication. Pt also advised to return to the ED for worsening symptoms. Signatures: Dispatcher [employer] EDMS Judy Herrmann, FATUMA RN aa5 Kunal Krueger NP [employer] pm1 Audrey Lucio 3 Leda Martinez RN RN ec1
--- NOTE | 2020-05-21 11:19 | EDPHYS ---
Physician Documentation [facility] Name: Jules Sierra Age: 19 yrs Sex: Male : 2000 Arrival Date: 05/21/2020 Time: 09:53 Bed 14 Private MD: ED Physician Leonard Robertson HPI: 05/21 10:08 This 19 yrs old Male presents to ER via EMS with complaints of Chest Pain. pm1 10:08 The patient or guardian reports chest pain that is located primarily in the mid-sternal pm1 area. The pain does not radiate. Associated signs and symptoms: Pertinent positives: cough, diarrhea, loss of sense of smell, Pertinent negatives: nausea, palpitations, shortness of breath, vomiting. The chest pain is described as sharp. Duration: The patient or guardian reports multiple episodes. Modifying factors: the symptoms are aggravated by cough. Patient had dinner with his cousin who lost her sense of taste and smell and her children who tested postive for covid. Patient with generalized bodyaches, lost of sense of smell, cough, diarrhea, and chest pain with coughing for the past 3 days. Historical: - Allergies: 09:57 No Known Allergies; ec1 - Home Meds: 09:57 None [Active]; ec1 - PMHx: 09:57 adhd; Depression; Panic Attacks; ec1 - PSHx: 09:57 None; ec1 - Immunization history:: Adult Immunizations up to date. - Social history:: Smoking status: Patient denies any tobacco usage or history of. ROS: 10:08 Constitutional: Negative for fever, chills, and weight loss, Neck: Negative for injury, pm1 pain, and swelling. 10:08 Back: Negative for injury and pain, : Negative for injury, bleeding, discharge, and swelling, MS/Extremity: Negative for injury and deformity, Skin: Negative for injury, rash, and discoloration, Neuro: Negative for headache, weakness, numbness, tingling, and seizure. 10:08 Cardiovascular: Positive for chest pain, with cough, Negative for edema, orthopnea, palpitations. 10:08 Respiratory: Positive for cough, Negative for shortness of breath, wheezing. 10:08 Abdomen/GI: Positive for diarrhea, Negative for abdominal pain, nausea and vomiting. Exam: 10:08 Constitutional: This is a well developed, well nourished patient who is awake, alert, pm1 and in no acute distress. Head/Face: Normocephalic, atraumatic. Chest/axilla: Normal chest wall appearance and motion. Nontender with no deformity. No lesions are appreciated. 10:08 Back: No spinal tenderness. No costovertebral tenderness. Full range of motion. Skin: Warm, dry with normal turgor. Normal color with no rashes, no lesions, and no evidence of cellulitis. MS/ Extremity: Pulses equal, no cyanosis. Neurovascular intact. Full, normal range of motion. 10:08 Cardiovascular: Exam negative for acute changes, Rate: normal, Rhythm: regular, Pulses: no pulse deficits are appreciated. 10:08 Respiratory: Exam negative for acute changes, respiratory distress, shortness of breath. 10:08 Abdomen/GI: Inspection: abdomen appears normal, Palpation: abdomen is soft and non-tender, in all quadrants. 10:08 Neuro: Exam negative for acute changes, Orientation: is normal, Mentation: is normal, Motor: is normal, moves all fours. Vital Signs: 09:54 BP 128 / 87; Pulse 115; Resp 16 S; Temp 100.3(O); Pulse Ox 96% on R/A; Weight 81.65 kg ec1 (R); Height 5 ft. 9 in. (175.26 cm) (R); Pain 0/10; 10:45 BP 136 / 81; Pulse 83; Resp 18 S; Pulse Ox 10% ; ec1 11:28 Temp 99.9(O); ec1 09:54 Body Mass Index 26.58 (81.65 kg, 175.26 cm) ec1 MDM: 10:06 Patient medically screened. pm1 10:29 ED course: Patient reports using marijuana regularly, but has stopped since he has pm1 gotten sick for the past 3 days. . 11:17 Data reviewed: vital signs. Data interpreted: Pulse oximetry: on room air is 100 %. pm1 Interpretation: normal. Counseling: I had a detailed discussion with the patient and/or guardian regarding: the historical points, exam findings, and any diagnostic results supporting the discharge/admit diagnosis, lab results, radiology results, to return to the emergency department if symptoms worsen or persist or if there are any questions or concerns that arise at home, Likely covid positive and pending results of swab in 2-3 days. 05/21 10:08 Order name: Basic Metabolic Panel pm1 05/21 10:08 Order name: CBC with Diff; Complete Time: 11:11 pm1 05/21 10:08 Order name: Magnesium; Complete Time: 11:11 pm1 05/21 10:08 Order name: Troponin (emerg Dept Use Only); Complete Time: 11:11 pm1 05/21 10:08 Order name: COVID-19 pm1 05/21 10:08 Order name: Flu; Complete Time: 11:11 pm1 05/21 10:08 Order name: XRAY Chest (1 view); Complete Time: 11:32 pm1 05/21 10:08 Order name: EKG; Complete Time: 10:09 pm1 05/21 10:08 Order name: Strep; Complete Time: 11:11 pm1 05/21 10:09 Order name: Basic Metabolic Panel; Complete Time: 11:11 EDMS 05/21 10:55 Order name: Throat Culture EDMS 05/21 10:08 Order name: Cardiac monitoring; Complete Time: 10:25 pm1 05/21 10:08 Order name: EKG - Nurse/Tech; Complete Time: 10:28 pm1 05/21 10:08 Order name: IV Saline Lock; Complete Time: 10:24 pm1 05/21 10:08 Order name: Labs collected and sent; Complete Time: 10:24 pm1 05/21 10:08 Order name: O2 Per Protocol; Complete Time: 10:24 pm1 05/21 10:08 Order name: O2 Sat Monitoring; Complete Time: 10:25 pm1 05/21 10:08 Order name: Droplet/Contact Precautions; Complete Time: 10:20 pm1 Administered Medications: 10:24 Drug: NS 0.9% 1000 ml Route: IV; Rate: 1000 ml; Site: left antecubital; ec1 11:13 Follow up: IV Status: Completed infusion; IV Intake: 1000ml ec1 10:31 Drug: Tylenol 1000 mg Route: PO; ec1 11:27 Follow up: Response: Temperature is decreased ec1 11:28 Drug: Tussionex Pennkinetic ER 5 ml Route: PO; ec1 11:37 Follow up: Response: No adverse reaction ec1 Disposition: 14:34 Co-signature as Attending Physician, Leonard Robertson MD. rn Disposition: 05/21/20 11:18 Discharged to Home. Impression: Acute upper respiratory infection, unspecified, Diarrhea, unspecified. - Condition is Stable. - Discharge Instructions: Diarrhea, Adult, Upper Respiratory Infection, Adult, COVID-19. - Prescriptions for Guaifenesin AC 10- 100 mg/5 mL Oral Liquid - take 10 milliliter by ORAL route every 4 hours As needed; 240 milliliter. - Medication Reconciliation Form, Thank You Letter, Antibiotic Education, Prescription Opioid Use form. - Follow up: Emergency Department; When: As needed; Reason: Worsening of condition. Follow up: Private Physician; When: 2 - 3 days; Reason: Recheck today's complaints, Continuance of care, Re-evaluation by your physician. - Problem is new. - Symptoms have improved. Signatures: Dispatcher [employer] EDMS Leonard Robertson MD MD rn Marinas, Patrick, CORPORATE MANAGER CORPORATE MANAGER pm1 Leda Martinez, RN RN ec1 Corrections: (The following items were deleted from the chart) 11:38 11:18 05/21/2020 11:18 Discharged to Home. Impression: Acute upper respiratory ec1 infection, unspecified; Diarrhea, unspecified. Condition is Stable. Forms are Medication Reconciliation Form, Thank You Letter, Antibiotic Education, Prescription Opioid Use. Follow up: Emergency Department; When: As needed; Reason: Worsening of condition. Follow up: Private Physician; When: 2 - 3 days; Reason: Recheck today's complaints, Continuance of care, Re-evaluation by your physician. Problem is new. Symptoms have improved. pm1
--- NOTE | 2020-05-21 11:29 | RAD REPORT ---
EXAM DESCRIPTION: RAD - Chest Single View - 05/21/2020 10:38 am CLINICAL HISTORY: Chest pain;Cough Chest pain. COMPARISON: No comparisons FINDINGS: Portable technique limits examination quality. The lungs are grossly clear. The heart is normal in size. No displaced fractures. IMPRESSION: No acute intrathoracic process suspected.
[2020-05-21] MEDS ORDERED: HYDROCODONE/CHLORPHEN 5 ML/OSYR ONE (11:38)
[2020-05-25 08:28] VITALS: BP 136/81; TEMP 99.9; O2SAT 10
== END 2020-05-21 11:38 | disposition home or self-care (01) ==
LOC: ER 09:51
DX: J06.9 Acute upper respiratory infection, unspecified (principal); Z20.828 Contact with and (suspected) exposure to other viral communicable diseases; R19.7 Diarrhea, unspecified
CPT/HCPCS: 36415; 71045; 80048; 83735; 84484; 85025; 87070; 87081; 87804; 93005; 96360; 99284; J7030; U0002